=== PATIENT | male | born 1990 | race African-American/Black ===

== ENCOUNTER 2021-09-04 12:29 | Emergency (ER) | payer OTHER, SELFPAY ==
--- NOTE | 2021-09-04 12:41 | ED.ABDPAIN ---
HPI - Abdominal Pain General Chief Complaint: Abdominal Pain Stated Complaint: Abdominal Pain,Nausea Time Seen by Provider: 09/04/21 12:41 Source: patient and RN notes reviewed History of Present Illness HPI narrative: Patient is a 30-year-old male who presents the urgent care with complaints of nausea and upper GI abdominal pains. Patient denies of any diarrhea or vomiting. States that the pain started on Saturday. Noticed that it does increase with eating and therefore patient has not been eating the last few days. Patient states that he has taken Pepto and Tums without much relief. Denies of any fever. No other acute complaints. No acute distress noted. Patient aware of the plan of care. Some parts of this dictation were generated by voice recognition software and may contain typographical and/or grammatical inaccuracies. Related Data Allergies Allergy/AdvReac Type Severity Reaction Status Date / Time No Known Allergies Allergy Verified 09/04/21 12:49 Review of Systems Review of Systems: CONSTITUTIONAL: Denies fever, chills, or sweats. EYES: Denies visual changes, redness, or discharge. ENT: Denies rhinorrhea, congestion, sore throat, or otalgia. CARDIOVASCULAR: Denies chest pain, palpitations, or edema. RESPIRATORY: Denies cough or dyspnea. GASTROINTESTINAL: Reports of upper abdominal pain and nausea without vomiting or diarrhea GENITOURINARY: Denies dysuria or hematuria. SKIN: Denies rash or itching. MUSCULOSKELETAL: Denies back pain, joint pain, or myalgia. NEUROLOGIC: Denies headache, numbness, or weakness. All other systems reviewed are negative, except as documented in HPI. PMFSH Comments At the time of my signature, I reviewed and agree with the nursing past medical, surgical, social, and family history. There is no relevant family history pertinent to the patient complaint. Exam Narrative: GENERAL: This is a well-nourished, well-developed patient, in no apparent distress. HEAD: normocephalic, atraumatic. EYES: PERRL. Sclera clear/white. Vision is grossly intact. EARS: External ears normal NOSE: External nose normal with no obvious nasal discharge, nares without redness, no rhinorrhea. THROAT: Mucous membranes moist NECK: Neck supple CARDIOVASCULAR: Regular rate and rhythm without murmurs, gallops, or rubs. RESPIRATORY: Clear to auscultation. Breath sounds equal bilaterally. No wheezes, rales, or rhonchi. GASTROINTESTINAL: Abdomen soft, substernal up lower abdominal tenderness, nondistended. Bowel sounds are active. No hepato-splenomegaly, or palpable masses. No guarding. SKIN: warm, intact with no suspicious lesions or rash, good texture and turgor. NEURO: awake, alert, and oriented to person, place and time. There were no obvious focal neurologic abnormalities. EXTREMITIES: No clubbing, cyanosis, or edema. Course Vital Signs Vital signs: Vital Signs Temperature 99.6 F 09/04/21 12:47 Pulse Rate 72 09/04/21 12:47 Respiratory Rate 16 09/04/21 12:47 Blood Pressure 138/78 09/04/21 12:47 Pulse Oximetry 100 09/04/21 12:47 Temperature 99.6 F 09/04/21 12:50 Pulse Rate 72 09/04/21 12:50 Respiratory Rate 16 09/04/21 12:50 Blood Pressure 138/78 09/04/21 12:50 Pulse Oximetry 100 09/04/21 12:50 Reviewed MDM - Abdominal Pain MDM Narrative Medical decision making narrative: Advised the patient to take the prescription medication as prescribed. If you develop any increase in abdominal pain associated with nausea, vomiting or fever?go to the emergency room. Otherwise avoid high fatty foods, fried foods, caffeinated foods and dairy for the next 3 to 5 days. Increase your water intake. Follow-up with the primary care doctor within 2 to 5 days or for worsening symptoms or failure to improve. Patient stated that he had no change after the GI cocktail other numbness. Patient is not in any acute distress at this time. Patient states he will follow up with his primary rather than go
[2021-09-04 12:47] VITALS: BP 138/78; PULSE 72; RESP 16; TEMP 37.6; O2SAT 100
[2021-09-04 12:50] VITALS: BP 138/78; PULSE 72; RESP 16; TEMP 37.6; O2SAT 100
[2021-09-04] MEDS: BELLADONNA ALK/PHENOB ELIX 10 ML, MAG HYDROX/ALUMINUM HYD/SIMETH 30 ML, LIDOCAINE HCL 2... PO (12:56)
== END 2021-09-04 13:18 | disposition home or self-care (01) ==
PROVIDERS: Emergency Provider Nurse Practitioner Family
DX: K21.9 Gastro-esophageal reflux disease without esophagitis (principal)
CPT/HCPCS: 99203; A9270; G0463